=== PATIENT | female | born 1990 | race Two or more races ===

== ENCOUNTER 2019-07-03 11:38 | Emergency (ER) | payer SELFPAY ==
[~2019-07-03] VITALS: Ht 152.4 cm; Wt 61.2 kg
--- NOTE | 2019-07-03 11:48 | NUR ---
ERMD at bedside for MSE
--- NOTE | 2019-07-03 12:09 | NUR ---
Patient discharged to home in stable conditon. Written and verbal after care instructions given. Patient verbalizes understanding of instructions. Patient ambulated with stable gait. Patient waiting for friend in room who is being cared for. Will leave once her friend is cleared.
[2019-07-03 12:10] VITALS: BP 121/72
== END 2019-07-03 12:10 | disposition home or self-care (01) ==
LOC: ER 11:38
DX: M79.604 Pain in right leg (principal); M54.2 Cervicalgia; R11.10 Vomiting, unspecified; R20.2 Paresthesia of skin; V49.9XXA Car occupant (driver) (passenger) injured in unspecified traffic accident, initial encounter; Y93.89 Activity, other specified; Y92.89 Other specified places as the place of occurrence of the external cause; Y99.8 Other external cause status
CPT/HCPCS: A4663